=== PATIENT | female | born 1990 | race Caucasian/White ===

== ENCOUNTER 2019-04-05 10:41 | Emergency (ER) | payer OTHER ==
[~2019-04-05] VITALS: Ht 157.5 cm; Wt 51.9 kg
[2019-04-05 10:44] VITALS: BP 126/74
--- NOTE | 2019-04-05 10:48 | NUR ---
PATIENT AMBULATED TO BED 11.
[2019-04-05] MEDS ORDERED: hydrOXYzine HCL 25 MG TAB PO ONE (11:05)
[2019-04-05] MEDS ORDERED: DEXAMETHASONE 10 MG/ML VIAL IM ONE (11:05)
[2019-04-05] MEDS ORDERED: cefTRIAXone 1,000 MG in LIDOCAINE 1% ***ER ONLY *** 2.1 ML IM ONE (11:05)
[2019-04-05] MEDS ORDERED: CLINDAMYCIN 150 MG CAP PO ONE (11:05)
--- NOTE | 2019-04-05 11:05 | NUR ---
DR. ARANDA AT BEDSIDE TO EVALUATE PT.
[2019-04-05] MEDS ORDERED: cefTRIAXone 1,000 MG VIAL ONE (11:30)
[2019-04-05] MEDS ORDERED: LIDOCAINE MPF 1% - 5 mL VIAL 5 ML ONE (11:32)
[2019-04-05 12:01] VITALS: BP 131/59
== END 2019-04-05 12:01 | disposition home or self-care (01) ==
LOC: MED 10:41
DX: L73.9 Follicular disorder, unspecified (principal)
CPT/HCPCS: 81025; 96372; 99283; J0696; J1100; J2001

== ENCOUNTER 2020-02-29 03:10 | Emergency (ER) | payer OTHER ==
[~2020-02-29] VITALS: Ht 160 cm; Wt 56.7 kg
[2020-02-29 03:28] VITALS: BP 111/72
[2020-02-29] MEDS ORDERED: BACITRACIN OINT 500 UNITS/GM PKT TP ONE (03:35)
[2020-02-29] MEDS ORDERED: LORazepam 1 MG TAB PO ONE (03:35)
[2020-02-29 05:45] VITALS: BP 114/80
== END 2020-02-29 05:45 | disposition home or self-care (01) ==
LOC: MED 03:10
DX: R20.2 Paresthesia of skin (principal); F15.10 Other stimulant abuse, uncomplicated; F17.200 Nicotine dependence, unspecified, uncomplicated; Z48.00 Encounter for change or removal of nonsurgical wound dressing; Z90.49 Acquired absence of other specified parts of digestive tract
CPT/HCPCS: 73562; 99283